=== PATIENT | female | born 1995 | race Caucasian/White ===

== ENCOUNTER 2016-09-08 23:33 | Observation (INO) | payer BC, OTHER | END 2016-09-09 14:41 | disposition home or self-care (01) | LOC: GENOP 23:33 → OB 23:42 | PROVIDERS: ADMIT Obstetrics & Gynecology | DX: O60.03 Preterm labor without delivery, third trimester (principal); O99.333 Smoking (tobacco) complicating pregnancy, third trimester; F17.210 Nicotine dependence, cigarettes, uncomplicated; Z3A.35 35 weeks gestation of pregnancy; Z88.1 Allergy status to other antibiotic agents | CPT/HCPCS: 81001; 96360; 96361; 96374; G0378; J2300; J7120 ==

== ENCOUNTER 2016-09-10 20:31 | Outpatient (CLI) | payer BC, OTHER | END 2016-09-11 08:31 | disposition home or self-care (01) | LOC: GENOP 20:31 | DX: O47.03 False labor before 37 completed weeks of gestation, third trimester (principal); Z3A.35 35 weeks gestation of pregnancy | CPT/HCPCS: 81001; 87077; 87086; 87186; 96360; 96361; 96367; 96372; 96375; J0696; J2300; J3105; J7120 ==

== ENCOUNTER 2016-09-14 09:01 | Inpatient (IN) | payer BC, OTHER ==
[~2016-09-14] VITALS: Ht 160 cm; Wt 54.0 kg
[2016-09-14 12:16] LABS: HEMOGLOBIN 11.6 gm/dl (12.3-15.3); RED BLOOD COUNT 3.66 M/UL (4.00-5.10); WHITE BLOOD COUNT 14.5 K/UL (4.5-11.0)
[2016-09-15 02:53] LABS: HEMOGLOBIN 11.2 gm/dl (12.3-15.3)
[2016-09-16] MEDS ORDERED: IBUPROFEN600 MG PO (13:55)
[2016-09-16] MEDS ORDERED: NORCO 5-325 TA1 EACH PO (13:56)
[2016-09-16] MEDS ORDERED: COLACE 100MG C100 MG PO (13:56)
== END 2016-09-16 13:15 | disposition home or self-care (01) | DRG 775 ==
LOC: GENOP 09:01 → OB 11:53
PROVIDERS: Obstetrics & Gynecology; ADMIT Obstetrics & Gynecology
PROC: 10E0XZZ Delivery of Products of Conception, External Approach (ICD-10-PCS; principal; 2016-09-14)
PROC: 10907ZC Drainage of Amniotic Fluid, Therapeutic from Products of Conception, Via Natural or Artificial Opening (ICD-10-PCS; 2016-09-14)
PROC: 3E0234Z Introduction of Serum, Toxoid and Vaccine into Muscle, Percutaneous Approach (ICD-10-PCS; 2016-09-16)
DX: O60.14X0 Preterm labor third trimester with preterm delivery third trimester, not applicable or unspecified (principal); O23.42 Unspecified infection of urinary tract in pregnancy, second trimester; Z3A.36 36 weeks gestation of pregnancy; Z37.0 Single live birth; O99.333 Smoking (tobacco) complicating pregnancy, third trimester; F17.210 Nicotine dependence, cigarettes, uncomplicated; Z23 Encounter for immunization; O99.320 Drug use complicating pregnancy, unspecified trimester
CPT/HCPCS: 36415; 51702; 82800; 85014; 85018; 85025; 90715; J2405; J2590; J2795; J3010; J7120

== ENCOUNTER → 2021-07-04 | Outpatient (CLI) | payer OTHER ==
[~2021-07-04] MED LIST: COLACE 100MG C100 MG PO; IBUPROFEN600 MG PO; MACROBID 100 M100 MG PO; NORCO 5-325 TA1 EACH PO
== END ==
LOC: GENOP 19:02
DX: O99.893 Other specified diseases and conditions complicating puerperium (principal); M54.9 Dorsalgia, unspecified; R10.2 Pelvic and perineal pain; R22.0 Localized swelling, mass and lump, head; O99.323 Drug use complicating pregnancy, third trimester; F12.980 Cannabis use, unspecified with anxiety disorder; Z3A.30 30 weeks gestation of pregnancy
CPT/HCPCS: 81001; 96360; J7120

== ENCOUNTER 2021-08-23 05:30 | Observation (INO) | payer OTHER ==
[2021-08-23 08:11] LABS: HEMOGLOBIN 10.7 gm/dl (12.3-15.3); RED BLOOD COUNT 3.34 M/UL (4.00-5.10); WHITE BLOOD COUNT 8.4 K/UL (4.5-11.0)
== END 2021-08-23 11:31 | disposition other institution (70) ==
LOC: OB 05:30
PROVIDERS: Obstetrics & Gynecology; ADMIT Obstetrics & Gynecology
DX: O36.5930 Maternal care for other known or suspected poor fetal growth, third trimester, not applicable or unspecified (principal); O99.313 Alcohol use complicating pregnancy, third trimester; F10.10 Alcohol abuse, uncomplicated; O13.3 Gestational [pregnancy-induced] hypertension without significant proteinuria, third trimester; O41.03X0 Oligohydramnios, third trimester, not applicable or unspecified; O99.513 Diseases of the respiratory system complicating pregnancy, third trimester; J45.909 Unspecified asthma, uncomplicated; Z3A.36 36 weeks gestation of pregnancy; Z20.822 Contact with and (suspected) exposure to COVID-19
CPT/HCPCS: 36415; 80307; 81001; 85025; G0378; G0379; U0002